=== PATIENT | female | born 2000 | race Caucasian/White ===

== ENCOUNTER 2020-09-20 03:33 | Emergency (ER) | payer OTHER, SELFPAY ==
--- NOTE | ~2020-09-20 | XR_ITS ---
EXAMINATION: XR CHEST CLINICAL INFORMATION: Shortness of breath. Rule out pneumonia COMPARISON: None TECHNIQUE: Frontal view of the chest was obtained. FINDINGS: The lungs are well expanded. There is no focal consolidation, edema, or effusion. Mild bronchial wall thickening is present. No pneumothorax. The cardiomediastinal silhouette is within normal limits. No acute osseous abnormality. XR/XR chest 1V IMPRESSION: No dense consolidation. Bronchial wall thickening can be seen with a small airways process such as asthma or atypical/viral infection.
[2020-09-20 03:38] VITALS: BP 120/70; PULSE 99; RESP 22; TEMP 37.3; O2SAT 98
[2020-09-20 04:00] VITALS: BP 118/70; PULSE 90; RESP 18; TEMP 37.2; O2SAT 99; BMI 24.7
--- NOTE | 2020-09-20 04:14 | ED.GENADULT ---
HPI - General Adult General Chief complaint: Abdominal Pain Stated complaint: VOMITING/SOB Time Seen by Provider: 09/20/20 03:57 Source: patient Mode of arrival: ambulatory Limitations: no limitations History of Present Illness HPI narrative: 20-year-old female who presents emergency department for evaluation of nausea, vomiting, diarrhea chest pain and shortness of breath. The patient states that she became ill at 9:00 p.m. last night. She states that she developed vomiting, she vomited at least 8 times. She states that initially she was vomiting food, the emesis then turned white and she occasionally noted blood in her emesis. She states that every time she vomited she had loose diarrheal stool with no blood in the stool. She is also complaining of mid epigastric sharp, constant pain which is severe, 10/10. She states that she feels short of breath but denies dyspnea on exertion. She complains of mid sternal chest pain which does not change with breathing. She denied dyspnea on exertion. She denied cough. The patient is currently living in a [place] [facility]. She believes that she has been exposed to [place] [facility]. Related Data Home Medications Medication Instructions Recorded Confirmed levonorgestrel 20 mcg/24 hours (6 INTRAUTERINE 08/28/20 08/28/20 yrs) 52 mg intrauterine device Previous Rx's Medication Instructions Recorded albuterol sulfate 90 mcg/actuation 1 - 2 puff INHALATION Q4-6H PRN 08/28/20 aerosol inhaler #6.7 g Allergies Allergy/AdvReac Type Severity Reaction Status Date / Time No Known Allergies Allergy Verified 09/20/20 04:02 Review of Systems Review of Systems: Yes all other systems are reviewed and are negative Neurologic: Reports Abnormal speech present [facility] Past Medical History [facility] Narrative: The patient denies tobacco, alcohol or drug use. She states she is currently homeless and is living in a [place] [facility]. Medical History Asthma IUD (intrauterine device) in place Living in [facility] [place] [facility] Primary language is Cym[place] Family History Family History (Updated 08/28/20 @ 12:17 by SUZANNA Iyer) Mother Back disorder Heart disease Father Heart disease Diabetes Brother No problems noted. Sister No problems noted. Son No problems noted. Social History Social History Alcohol intake: never Smoking Status: Never smoker Use of substances other than those prescribed or required for medical reasons: No Advance Directives: No Physical Exam Vital Signs: Vital Signs: Last Vital Signs Temp 99 F 09/20/20 04:00 Pulse 90 09/20/20 04:00 Resp 18 09/20/20 04:00 BP 118/70 09/20/20 04:00 Pulse Ox 99 09/20/20 04:00 Body Mass Index 24.7 Const: General: cooperative and in distress (Moderate, secondary to abdominal pain) Orientation/consciousness: oriented to person and oriented to place Limitations: no limitations HENMT: Head: Yes normal to inspection, Yes normocephalic and Yes atraumatic Ears: external ears normal General nose exam: Normal external nose present Face and sinus: Yes normal facial exam Mouth: Normal oral and palatal mucosa present Throat: Yes posterior oropharynx normal Eyes: Periorbital: periorbital findings normal Eyelids: Yes eyelids normal Conjunctivae: conjunctivae normal Sclerae: sclerae normal Corneas: corneas normal Pupils: Equal, round and reactive pupils present Direct Ophthalmoscopy: normal light reflex Neck: Neck: Yes full ROM, Yes no lymphadenopathy, Yes no meningeal signs, Yes trachea midline and Yes supple Chest: Chest palpation & inspection: normal inspection of the chest and normal palpation of entire chest wall Resp: Effort & Inspection: normal respiratory effort and able to speak in complete sentences Auscultation: clear to auscultation bilaterally Cardio: Rate: regular rate Rhythm: regular rhythm Heart sounds: S1 normal heart sound present, S2 normal heart sound present and no murmurs GI: Inspection: Yes normal to inspection Palpation (GI): Soft to palpation, Tenderness to palpation present (GI) in the epigastrum (Moderate tenderness), no guarding, not rigid and No hepatosplenomegaly present : General: Yes no CVA tenderness Back/Spine/Pelvis: Back: no CVA tenderness Cervical Spine: normal cervical lordosis Thoracic/Lumbar Spine: thoracic and lumbar spine normal to inspection Skin: Lesions: no lesions Rashes: no rashes Wounds: no wounds Neuro: General: oriented to person, oriented to place and no meningeal signs Cranial nerves: Yes CN's II-XII intact bilaterally and Yes Equal, round and reactive pupils present Cognition (Neuro): normal cognition Speech: Abnormal speech present Motor exam (neuro): 5/5 motor strength present throughout Extrem: General: Yes normal to inspection and Yes full ROM Psych: Appearance: well kempt Mental Status: mental status grossly normal Speech and movement: Normal speech and movement present Affect: normal affect Attitude: cooperative Thought process: Normal thought process present Thought content: Normal thought content present Course Course Course Narrative: 20-year-old female who presents emergency department for evaluation of viral-like illness with chest pain, shortness of breath, nausea, vomiting, diarrhea and epigastric pain. Patient's symptoms began last night at 9:00 p.m.. Physical examination revealed an elevated respiratory rate of 22 otherwise the vital signs were normal. Her abdominal exam did reveal moderate mid epigastric tenderness. I did order a laboratory workup on this patient and the patient will also be tested for COVID-19. She was treated with Toradol 30 mg IV, Zofran 4 mg IV and normal saline x1 L. 0526: The patient's laboratory evaluation was unremarkable, the patient's influenza/RSV/COVID-19 test were negative. The patient was ordered to get a 2nd L of normal saline IV, she is feeling significantly better. She most likely has acute viral syndrome/gastroenteritis. The patient will be discharged home with a prescription for Zofran, ibuprofen and Tylenol. Medical Decision Making Lab Data Result diagrams: 09/20/20 04:35 09/20/20 04:35 Labs: Lab Results 09/20/20 09/20/20 09/20/20 Range/Units 04:19 04:19 04:20 WBC (4.8-10.8) X10*3/uL RBC (4.20-5.50) X10*6/uL Hgb (12.0-16.0) g/dl Hct (37-47) % MCV (80-98) fL MCH (27.0-33.0) pg MCHC (31.0-35.0) g/dl RDW (11.0-16.0) % Plt Count (160-400) X10*3/uL MPV (9.4-12.3) fL Immature Gran % (Auto) (0.0-0.4) % Neut % (Auto) (45-73) % Lymph % (Auto) (20-40) % Harnett % (Auto) (2-11) % Eos % (Auto) (0-4) % Baso % (Auto) (0-2) % Lymph # (Auto) (1.2-4.9) X10*3/uL Harnett # (Auto) (0.1-1.2) X10*3/uL Eos # (Auto) (0.0-0.4) X10*3/uL Baso # (Auto) (0.0-0.2) X10*3/uL Abs Immat Gran (auto) (0.00-0.03) X10*3/uL Absolute Neuts (auto) (2.0-8.3) X10*3/uL Absolute Nucleated RBC (0.0-0.012) X10*3/uL Nucleated RBC % (auto) (0.0-0.2) /100WBC Sodium (135-145) mmol/L Potassium (3.3-5.1) mmol/L Chloride (96-108) mmol/L Carbon Dioxide (22-29) mmol/L Anion Gap (12-20) BUN (9-16) mg/dL Creatinine (0.5-1.4) mg/dL Estim Creat Clear Calc Estimated GFR Random Glucose (60-115) mg/dL Calcium (8.4-10.2) mg/dL Total Bilirubin (0.0-1.0) mg/dL AST (5-31) U/L ALT (0-31) U/L Alkaline Phosphatase (39-117) U/L Total Protein (6.5-8.0) g/dL Albumin (3.5-5.0) g/dL Lipase (8-78) U/L Urine Color YELLOW Urine Appearance CLEAR Urine pH 7.0 (5.0-8.0) Ur Specific Garrison 1.025 (1.005-1.025) Urine Protein NEG (NEG-TRACE) MG/DL Urine Glucose (UA) NEG (NEG) MG/DL Urine Ketones 15 (NEG) MG/DL Urine Blood NEG (NEG) Urine Nitrite NEG (NEG) Ur Leukocyte Esterase NEG (NEG) Urine Test NEGATIVE (NEGATIVE) COVID-19 ([facility]) Negative (Negative) COVID-19 Clin Com See Note 09/20/20 09/20/20 Range/Units 04:35 04:35 WBC 15.7 H (4.8-10.8) X10*3/uL RBC 4.88 (4.20-5.50) X10*6/uL Hgb 13.6 (12.0-16.0) g/dl Hct 41.3 (37-47) % MCV 84.6 (80-98) fL MCH 27.9 (27.0-33.0) pg MCHC 32.9 (31.0-35.0) g/dl RDW 12.7 (11.0-16.0) % Plt Count 284 (160-400) X10*3/uL MPV 10.8 (9.4-12.3) fL Immature Gran % (Auto) 0.3 (0.0-0.4) % Neut % (Auto) 79.2 H (45-73) % Lymph % (Auto) 15.4 L (20-40) % Harnett % (Auto) 4.3 (2-11) % Eos % (Auto) 0.4 (0-4) % Baso % (Auto) 0.4 (0-2) % Lymph # (Auto) 2.4 (1.2-4.9) X10*3/uL Harnett # (Auto) 0.7 (0.1-1.2) X10*3/uL Eos # (Auto) 0.1 (0.0-0.4) X10*3/uL Baso # (Auto) 0.1 (0.0-0.2) X10*3/uL Abs Immat Gran (auto) 0.05 H (0.00-0.03) X10*3/uL Absolute Neuts (auto) 12.4 H (2.0-8.3) X10*3/uL Absolute Nucleated RBC 0.000 (0.0-0.012) X10*3/uL Nucleated RBC % (auto) 0.0 (0.0-0.2) /100WBC Sodium 136 (135-145) mmol/L Potassium 4.0 (3.3-5.1) mmol/L Chloride 103 (96-108) mmol/L Carbon Dioxide 25 (22-29) mmol/L Anion Gap 12 (12-20) BUN 8 L (9-16) mg/dL Creatinine 0.76 (0.5-1.4) mg/dL Estim Creat Clear Calc 101.7 Estimated GFR > 60 Random Glucose 97 (60-115) mg/dL Calcium 9.2 (8.4-10.2) mg/dL Total Bilirubin 0.7 (0.0-1.0) mg/dL AST 18 (5-31) U/L ALT 13 (0-31) U/L Alkaline Phosphatase 67 (39-117) U/L Total Protein 7.6 (6.5-8.0) g/dL Albumin 4.5 (3.5-5.0) g/dL Lipase 8 (8-78) U/L Urine Color Urine Appearance Urine pH (5.0-8.0) Ur Specific Garrison (1.005-1.025) Urine Protein (NEG-TRACE) MG/DL Urine Glucose (UA) (NEG) MG/DL Urine Ketones (NEG) MG/DL Urine Blood (NEG) Urine Nitrite (NEG) Ur Leukocyte Esterase (NEG) Urine Test (NEGATIVE) COVID-19 ([facility]) (Negative) COVID-19 Clin Com Discharge Plan Discharge Prescriptions: No Action Mirena 20 mcg/24 hours (6 yrs) 52 mg intrauterine device intrauterine RF: 0 albuterol sulfate 90 mcg/actuation HFA aerosol inhaler 1 - 2 puff inhalation Q4-6H PRN (Reason: asthma) Qty: 6.7 RF: 0
[2020-09-20] MEDS: ondansetron HCL 4 MG/2 ML VIAL IVPUSH (04:36)
[2020-09-20] MEDS: 0.9 % Sodium Chloride 1,000 ML 999 ML IV ×2 (04:36→05:28)
[2020-09-20] MEDS: Ketorolac Tromethamine 30 MG/ML VIAL IVPUSH (04:36)
[2020-09-20 04:46] LABS: Basophils Absolute Auto 0.1 X10*3/uL (0.0-0.2); Basophils Percent Auto 0.4 % (0-2); Eosinophils Absolute Auto 0.1 X10*3/uL (0.0-0.4); Eosinophils Percent Auto 0.4 % (0-4); Hematocrit 41.3 % (37-47); Hemoglobin 13.6 g/dl (12.0-16.0); Imm Gran Abs Auto 0.05 X10*3/uL (0.00-0.03); Imm Gran Pct Auto 0.3 % (0.0-0.4); Lymphocytes Absolute Auto 2.4 X10*3/uL (1.2-4.9); Lymphocytes Percent Auto 15.4 % (20-40); Mean Corpuscular HGB Conc 32.9 g/dl (31.0-35.0); Mean Corpuscular Hemoglobin 27.9 pg (27.0-33.0); Mean Corpuscular Volume 84.6 fL (80-98); Mean Platelet Volume 10.8 fL (9.4-12.3); Monocytes Absolute Auto 0.7 X10*3/uL (0.1-1.2); Monocytes Percent Auto 4.3 % (2-11); Neutrophils Absolute Auto 12.4 X10*3/uL (2.0-8.3); Neutrophils Percent Auto 79.2 % (45-73); Platelet Count 284 X10*3/uL (160-400); Red Blood Count 4.88 X10*6/uL (4.20-5.50); Red Cell Distribution Width 12.7 % (11.0-16.0); White Blood Count 15.7 X10*3/uL (4.8-10.8)
[2020-09-20 04:47] LABS: MANUAL DIFF FLAG NO
[2020-09-20 04:48] LABS: Glucose Urine UA NEG (NEG); Leukocyte Esterase Urine NEG (NEG); Nitrite Urine NEG (NEG); Specific Gravity - Urine 1.025 (1.005-1.025); Urine Blood NEG (NEG); Urine Ketones 15 MG/DL (NEG); Urine Protein NEG (NEG-TRACE)
[2020-09-20 04:50] LABS: Appearance Urine CLEAR; Color Urine YELLOW
[2020-09-20 04:51] LABS: UPreg QC Valid YES; Urine Pregnancy NEGATIVE (NEGATIVE)
[2020-09-20 05:01] LABS: COVID-19 Test Negative (Negative); IDNOW Serial# 9DD0AD1C
[2020-09-20 05:11] LABS: Alanine Aminotransferase 13 U/L (0-31); Albumin Level 4.5 g/dL (3.5-5.0); Alkaline Phosphatase 67 U/L (39-117); Anion Gap 12 (12-20); Aspartate Amino Transferase 18 U/L (5-31); Bilirubin Total 0.7 mg/dL (0.0-1.0); Blood Urea Nitrogen 8 mg/dL (9-16); Calcium 9.2 mg/dL (8.4-10.2); Carbon Dioxide 25 mmol/L (22-29); Chloride 103 mmol/L (96-108); Creatinine Clr Calc Pharmacy 101.7; Estimated Glomerular Filt Rate > 60; Glucose Random 97 mg/dL (60-115); Lipase 8 U/L (8-78); Sodium 136 mmol/L (135-145); Total Protein 7.6 g/dL (6.5-8.0)
[2020-09-20 05:29] VITALS: BP 106/59; PULSE 65; RESP 19; O2SAT 99
== END 2020-09-20 06:25 | disposition home or self-care (01) ==
PROVIDERS: Emergency Provider Emergency Medicine Emergency Medical Services
DX: R11.2 Nausea with vomiting, unspecified (principal); R07.9 Chest pain, unspecified; R06.02 Shortness of breath; R19.7 Diarrhea, unspecified; Z79.899 Other long term (current) drug therapy; Z20.822 Contact with and (suspected) exposure to COVID-19
CPT/HCPCS: 36415; 71045; 80053; 81003; 81025; 83690; 85025; 87635; 96361; 96374; 96375; 99284; J1885; J2405

== ENCOUNTER 2020-12-18 09:02 | Outpatient (REF) | payer OTHER, SELFPAY ==
[2020-12-18 12:35] LABS: Syphilis Screen Nonreactive (Nonreactive)
[2020-12-18 15:24] LABS: CT PCR NOT DETECTED (Not Detect.); NG PCR NOT DETECTED (Not Detect.)
[2020-12-19 04:29] LABS: HIV AB/AG Nonreactive (Nonreactive); HIV Num 1 0.04 S/CO (0.00-0.99)
[2020-12-19 04:30] LABS: HBc Num1 0.07 S/CO (0.00-0.79); Hepatitis B Core Antibody Nonreactive (Nonreactive); ~HepC Num1 0.06 S/CO (0.00-0.79); ~Hepatitis C Antibody Nonreactive (Nonreactive)
[2020-12-19 09:36] LABS: BV Int Neg Control Negative (Negative); BV Int Pos Control Positive (Positive)
== END 2020-12-18 09:03 | disposition home or self-care (01) ==
LOC: HO.LAB 09:02
PROVIDERS: PCP Internal Medicine; Visit Provider Advanced Practice Midwife
DX: R10.2 Pelvic and perineal pain (principal); Z20.2 Contact with and (suspected) exposure to infections with a predominantly sexual mode of transmission; Z30.09 Encounter for other general counseling and advice on contraception
CPT/HCPCS: 36415; 81025; 86704; 86780; 86803; 87389; 87480; 87491; 87510; 87591; 87660; 99202

== ENCOUNTER 2021-01-18 14:43 | Emergency (ER) | payer OTHER, SELFPAY ==
[2021-01-18 14:53] VITALS: BP 115/74; PULSE 92; RESP 18; TEMP 37.3; O2SAT 100; BMI 31.5
--- NOTE | 2021-01-18 16:29 | ED.URI ---
HPI - URI/Sore Throat General Chief Complaint: Upper Respiratory Symptoms Stated Complaint: difficulty breathing, sore throat Time Seen by Provider: 01/18/21 16:28 History of Present Illness HPI Narrative: Patient complains of sore throat runny nose mild cough and wheezing typical of her asthma that is relieved with her pump but comes back later, no fever no chills no chest pain Related Data Home Medications Medication Instructions Recorded Confirmed levonorgestrel 20 mcg/24 hours (6 INTRAUTERINE 08/28/20 11/28/20 yrs) 52 mg intrauterine device Previous Rx's Medication Instructions Recorded albuterol sulfate 90 mcg/actuation 1 - 2 puff INHALATION Q4-6H PRN 08/28/20 aerosol inhaler #6.7 g acetaminophen 1,000 mg PO Q6H PRN #20 tab 09/20/20 ibuprofen 600 mg PO TID PRN #20 tab 09/20/20 ondansetron 4 mg PO Q6-8H PRN #14 tab 09/20/20 albuterol sulfate 2 inh INHALATION Q4H PRN #1 ea 01/18/21 ibuprofen 600 mg PO Q6H PRN #20 tab 01/18/21 prednisone 60 mg PO DAILY 4 Days #12 tab 01/18/21 Allergies Allergy/AdvReac Type Severity Reaction Status Date / Time No Known Allergies Allergy Verified 12/18/20 09:30 Review of Systems Review of Systems: positive for runny nose cough and wheezing Negatives are no fever no chills no dizziness no weakness no fainting no feeling faint no headache no sore throat no neck pain no chest pain no abdominal pain no nausea vomiting or diarrhea no dysuria no skin rash Yes all other systems are reviewed and are negative [facility] Past Medical History Source: nursing notes reviewed Medical History Asthma IUD (intrauterine device) in place Living in homeless custodial Primary language is Welsh Surgical History No history of previous surgery Family History Family History Mother Back disorder Heart disease Father Heart disease Diabetes Brother No problems noted. Sister No problems noted. Son No problems noted. Social History Social History Alcohol intake: never Physical Exam Vital Signs: Vital Signs: Last Vital Signs Temp 99.1 F 01/18/21 14:53 Pulse 92 01/18/21 14:53 Resp 18 01/18/21 14:53 BP 115/74 01/18/21 14:53 Pulse Ox 100 01/18/21 14:53 Body Mass Index 31.5 general appearance no acute distress Head is normocephalic atraumatic The eyes are clear no redness or discharge The pharynx is clear well-hydrated with moist mucous membranes no redness no swelling no exudate, voice is normal Neck is supple Chest is clear to auscultation bilateral Heart no murmur Abdomen soft nontender Extremities no calf tenderness or swelling no edema Skin no rashes Course Course Course Narrative: no pneumonia on chest x-ray and patient is treated for asthma and discharge Strep test negative and COVID test negative MDM - URI/Sore Throat Lab Data Labs: Lab Results 01/18/21 01/18/21 Range/Units 16:47 16:47 COVID-19 ([facility]) Negative (Negative) COVID-19 Clin Com See Note S. pyogenes GrpA SANDER Negative (Negative) Discharge Plan Discharge Clinical Impression: Acute viral pharyngitis, Asthma Patient Disposition: Home, Self-Care Additional Instructions: Because you are using her asthma pump frequently we are giving prednisone which reduces inflammation that causes wheezing This will also help his sore throat Otherwise use Tylenol or Motrin for discomfort drink plenty of fluids Your COVID test and her strep throat test were negative Return any time any concerns or any worse condition Prescriptions: New albuterol sulfate 90 mcg/actuation aerosol powdr breath activated 2 inh inhalation Q4H PRN (Reason: shortness of breath or wheezing) Qty: 1 RF: 0 ibuprofen 600 mg tablet 600 mg PO Q6H PRN (Reason: fever or pain) Qty: 20 RF: 0 prednisone 20 mg tablet 60 mg PO DAILY 4 Days Qty: 12 RF: 0 No Action ondansetron 4 mg tablet,disintegrating 4 mg PO Q6-8H PRN (Reason: nausea and vomiting) Qty: 14 RF: 0 ibuprofen 600 mg tablet 600 mg PO TID PRN (Reason: fever or pain) Qty: 20 RF: 0 acetaminophen 500 mg tablet 1,000 mg PO Q6H PRN (Reason: fever or pain) Qty: 20 RF: 0 Mirena 20 mcg/24 hours (6 yrs) 52 mg intrauterine device intrauterine RF: 0 albuterol sulfate 90 mcg/actuation HFA aerosol inhaler 1 - 2 puff inhalation Q4-6H PRN (Reason: asthma) Qty: 6.7 RF: 0 Interventions: ED Discharge Assessment Last Done: 01/18/21 17:38 Discharge Date/Time: 01/18/21 17:39
[2021-01-18 17:18] LABS: IDNOW Serial# 9DD0AD1C
[2021-01-18 17:19] LABS: COVID-19 Test Negative (Negative); Strep A Nucleic Acid Negative (Negative)
[2021-01-18] MEDS: predniSONE 20 MG TABLET 60 MG PO (17:37)
== END 2021-01-18 17:39 | disposition home or self-care (01) ==
PROVIDERS: Physician Assistant Medical; Emergency Provider Emergency Medicine; PCP Internal Medicine
DX: J02.9 Acute pharyngitis, unspecified (principal); J45.909 Unspecified asthma, uncomplicated; Z20.822 Contact with and (suspected) exposure to COVID-19; Z59.0 Homelessness
CPT/HCPCS: 36415; 87635; 87651; 99283